=== PATIENT | female | born 1990 | race Caucasian/White ===

== ENCOUNTER 2017-10-30 07:40 | Emergency (ER) | payer OTHER ==
[~2017-10-30] VITALS: Ht 175.3 cm; Wt 66.1 kg
[~2017-10-30 07:40] MED LIST: ALBUTEROL17 GM IH; CLONIDINE HCL0.1 MG PO; CORTISONE99 GM TP; ZOFRAN4 MG PO
[2017-10-30] MEDS ORDERED: MOTRIN600 MG PO (08:07)
[2017-10-30] MEDS ORDERED: CIPRO HC OTIC S10 ML RIGHT EAR (08:07)
[2017-10-30 09:01] VITALS: BP 106/57
[2017-10-31] MEDS ORDERED: NORCO 5/3251 TABLET PO (04:06)
[2017-10-31] MEDS ORDERED: LEVAQUIN500 MG PO (04:16)
== END 2017-10-30 09:02 | disposition home or self-care (01) ==
LOC: EME 07:40
DX: H69.01 Patulous Eustachian tube, right ear (principal); J45.909 Unspecified asthma, uncomplicated; F17.200 Nicotine dependence, unspecified, uncomplicated; F12.90 Cannabis use, unspecified, uncomplicated
CPT/HCPCS: 99281; 99283; J1885

== ENCOUNTER 2017-10-31 01:52 | Emergency (ER) | payer OTHER ==
[~2017-10-31] VITALS: Ht 175.3 cm; Wt 67.0 kg
[~2017-10-31 01:52] MED LIST changes: +CIPRO HC OTIC S10 ML RIGHT EAR; +MOTRIN600 MG PO
[2017-10-31] MEDS ORDERED: NORCO 5/3251 TABLET PO (04:06)
[2017-10-31] MEDS ORDERED: LEVAQUIN500 MG PO (04:16)
[2017-10-31 04:29] VITALS: BP 120/75
== END 2017-10-31 04:29 | disposition home or self-care (01) ==
LOC: EXP 01:52 → EME 01:52 → EXP 04:29
DX: H60.91 Unspecified otitis externa, right ear (principal); F17.200 Nicotine dependence, unspecified, uncomplicated
CPT/HCPCS: 99281; 99283